=== PATIENT | female | born 2000 | race Caucasian/White ===

== ENCOUNTER 2020-07-29 15:41 | Emergency (ER) | payer BC, SELFPAY ==
[2020-07-29 16:25] VITALS: BP 152/99; PULSE 132; RESP 20; TEMP 36.7; O2SAT 99; BMI 40.3
[2020-07-29 17:07] VITALS: BP 152/99; PULSE 102; RESP 20; TEMP 36.7; O2SAT 99
--- NOTE | 2020-07-29 17:13 | HMH.EDUTC ---
[facility] [place] Clinical Impression: Exposure to COVID-19 virus Disposition: Home, Self-Care Condition on Discharge: Good Instructions: DI for COVID-19 (Suspected or Confirmed ), Preventing the Spread of Coronavirus Discharge Instructions Additional Instructions: self isolate until test results are known to be neg Referrals: PCP,No [Primary Care Provider] - Time of Disposition: 17:16 Medical Decision Making - Roosevelt Inquiry Pt receiving controlled substance: No Vital Signs: 07/29/20 16:25 07/29/20 17:07 Temperature 98.1 F 98.1 F Temperature Source Oral Pulse Rate 102 H Pulse Rate [Left Brachial] 132 H Respiratory Rate 20 20 Blood Pressure 152/99 H Blood Pressure [Left Arm] 152/99 H Blood Pressure Mean [Left Arm] 116 Blood Pressure Source [Left Arm] Automatic Cuff Blood Pressure Position [Left Arm] Sitting 02 Sat by Pulse Oximetry 99 Oxygen Delivery Method Room Air [facility] [place] - General Chief complaint: Urgent [facility] Stated complaint: Covid Test Time Seen by Provider: 07/29/20 17:13 Mode of Arrival: Ambulatory Source of Information: Patient Limitations: No Limitations Description of Symptoms (Recalled from Triage Doc. by RN): COVID TEST D/T INDIRECT EXPOSURE HEENT Symptoms (Recalled from RN notes): No Resp Symptoms (Recalled from RN notes): No Skin Symptoms (Recalled from RN notes): No MS Symptoms (Recalled from RN notes): No Functional Status (Recalled from RN notes): WNL - History of Present Illness Provider Complaint: 19 yr old female presents for covid test. pt states she was exposed but no symptoms. - Related Data Allergies Allergy/AdvReac Type Severity Reaction Status Date / Time No Known Allergies Allergy Verified 07/29/20 17:00 - Worker's Comp Is this a Worker's Comp case?: No [facility] [place] History - Hepatitis A Screen Drug use history?: No High risk sexual behaviors?: No History of sexually transmitted infection?: No Currently employed?: No Childcare worker?: No Do you have indoor plumbing?: Yes Do you have electricity?: Yes Attestation statement:: This patient has been screened for Hepatitis A risk factors. I have reviewed the patient's past medical history: No - Social History Alcohol Intake: never Occupational Status: other ROS Obtained: Yes All systems reviewed & no additional complaints - Constitutional Constitutional: Reports system reviewed and no additional complaints, except as docu, Denies chills, Denies fever(s) - Eyes Eyes: Reports system reviewed and no additional complaints, except as docu, Denies blurry vision - ENT Ears, Nose, Mouth, and Throat: Reports system reviewed and no additional complaints, except as docu, Denies bleeding gums, Denies sore throat - Cardiovascular Cardiovascular: Reports system reviewed and no additional complaints, except as docu, Denies dyspnea - Respiratory Respiratory: Yes system reviewed and no additional complaints, except as docu, No change in phlegm color - Gastrointestinal Gastrointestingal: Reports: system reviewed and no additional complaints, except as docu. Denies: nausea, vomiting - Genitourinary Female Genitourinary: Reports system reviewed and no additional complaints, except as docu - Musculoskeletal Musculoskeletal: Reports system reviewed and no additional complaints, except as docu, Denies joint pain - Integumentary/Breasts Skin/Breast: Reports system reviewed and no additional complaints, except as docu, Denies rash - Neurologic Neurologic: Reports system reviewed and no additional complaints, except as docu, Denies dizziness - Endocrine Endocrine: Reports system reviewed and no additional complaints, except as docu, Denies fatigue - Hematologic/Lymphatic Henatologic/Lymphatic: Reports system reviewed and no additional complaints, except as docu, Denies lymphadenopathy - Allergic/Immunologic Allergic/Immunologic: Reports system reviewed and no additional complaints, excep
== END 2020-07-29 17:22 | disposition home or self-care (01) ==
PROVIDERS: Emergency Provider Nurse Practitioner Family
DX: Z20.822 Contact with and (suspected) exposure to COVID-19 (principal)
CPT/HCPCS: 99202; G0463; U0003

== ENCOUNTER 2022-12-06 08:10 | Emergency (ER) | payer BC, SELFPAY ==
[2022-12-06 08:19] VITALS: BMI 32.3
--- NOTE | 2022-12-06 08:20 | XR_ITS ---
PROCEDURE INFORMATION: Exam: XR Right Foot Exam date and time: 12/06/2022 8:20 AM Age: 22 years old Clinical indication: Toes; Right; Patient HX: PT stubbed 5th phalanx of RT foor last night, pain w occasional numbness since. ; Additional info: Pinky toe pain TECHNIQUE: Imaging protocol: Radiologic exam of the right foot. Views: 1 or 2 views. COMPARISON: No relevant prior studies available. FINDINGS: Bones/joints: Displaced transverse fracture proximal phalanx 5th digit. No articular extension. No dislocation. Soft tissues: Mild lateral soft tissue swelling. IMPRESSION: Displaced transverse fracture proximal phalanx 5th digit. No articular extension.
[2022-12-06 08:30] VITALS: BP 147/103; PULSE 114; RESP 23; TEMP 37.6; O2SAT 98; BMI 44.5
--- NOTE | 2022-12-06 08:47 | EXP.UTC ---
Discharge Plan Disposition Patient Disposition: Home, Self-Care Condition: Good Referrals Follow up/Referrals: Nate Diggs DO [Staff Physician] - See instructions (call office for appointment) Provider,Osman, [Primary Care Provider] - See instructions Activity Restrictions/Add. Instructions Additional Instructions/Restrictions: *weight bearing as tolerated *RICE, Rest the extremity, Ice 15-20 minutes 3-4 times daily, Compress- wear the wilian wrap as discussed as much as possible to help reduce swelling and pain, Elevate the extremity when at rest *Post op shoe is for support and help control swelling, use it except in the shower. Be sure that is not to tight but not to loose either *Elevate when resting? *Ibuprofen 600-800mg every 6-8 hours as needed for pain an inflammation. If need something more can take Tylenol in between doses of Ibuprofen to help Immediately follow up with your family doctor for new or worsening of symptoms, or no noticeable improvement over the next 3-5 days Call orthopedic office for appointment Clinical Impressions Clinical Impression: Phalanx fracture, foot Instructions Patient Instructions: DI for Toe Fracture, Toe Fracture, How To Perform RICE (Rest, Ice, Compress, Elevate) Discharge ED Provider: Lesly Quesada [facility] [place] Stated complaint: AO@home 12/06 RT pinky toe pain Mode of Arrival: Ambulatory Source of Information: Patient Limitations: No Limitations Time Seen by Provider: 12/06/22 08:47 Description of Symptoms (Recalled from Triage Doc. by RN): PATIENT C/O PAIN TO RIGHT PINKY TOE AFTER SHE STUBBED IT LAST NIGHT HEENT Symptoms (Recalled from RN notes): No Resp Symptoms (Recalled from RN notes): No Skin Symptoms (Recalled from RN notes): No MS Symptoms (Recalled from RN notes): Yes Functional Status (Recalled from RN notes): WNL History of Present Illness Provider Complaint: Patient state that she was playing around at home last night when she stubbed her right little toe on door frame States that she has been having pain, swelling and bruising every since Related Data Allergies Allergy/AdvReac Type Severity Reaction Status Date / Time No Known Allergies Allergy Verified 07/29/20 17:00 Worker's Comp Is this a Worker's Comp case?: No [facility] Disclaimer: The information contained in this section may have been updated after the patient was seen, as this information can be updated by other users. Social History Smoking Status: Unknown if ever smoked alcohol intake: never current occupational status: other Travel in the last 8 weeks: None ROS Obtained: Yes All systems reviewed & no additional complaints except as documented and Yes Systems reviewed as appropriate & no additional complaints except as documented ENT Ears, Nose, Mouth, and Throat: Reports system reviewed and no additional complaints, except as documented and Reports as per HPI Cardiovascular Cardiovascular: Reports system reviewed and no additional complaints, except as documented and Reports as per HPI Respiratory Respiratory: Reports system reviewed and no additional complaints, except as documented and Reports as per HPI Gastrointestinal Gastrointestingal: Reports system reviewed and no additional complaints, except as documented and as per HPI Musculoskeletal Musculoskeletal: Reports system reviewed and no additional complaints, except as documented and Reports as per HPI Comments: Pain, swelling and right little toe Physical Exam General General appearance: alert and in no apparent distress Respiratory Respiratory exam: Present normal lung sounds bilaterally; Absent respiratory distress or wheezes Cardiovascular Cardiovascular exam: Present regular rate, normal rhythm and normal heart sounds Expanded Lower Extremity Exam Right: Top foot image: 1. swelling and bruising noted Neurovascular/Tendon exam: Present normal capillary refill; Absent pulse deficit
[2022-12-06 08:48] VITALS: BP 147/103; PULSE 114; RESP 23; TEMP 37.6; O2SAT 98
== END 2022-12-06 09:20 | disposition home or self-care (01) ==
PROVIDERS: Emergency Provider Nurse Practitioner
DX: S92.511A Displaced fracture of proximal phalanx of right lesser toe(s), initial encounter for closed fracture (principal); W22.8XXA Striking against or struck by other objects, initial encounter
CPT/HCPCS: 73620; 99212; 99214; G0463

== ENCOUNTER → 2023-01-08 14:31 | Outpatient (CLI) | payer BC, SELFPAY ==
--- NOTE | 2023-01-08 14:35 | XR_ITS ---
FINAL REPORT CLINICAL HISTORY: Rt foot pain COMPARISON: None FINDINGS: RIGHT FOOT: Three views of the right foot were obtained. There is no acute fracture or dislocation. The joint spaces are intact. There is no soft tissue abnormality. IMPRESSION: No acute bony abnormality. Reviewed, Interpreted and Dictated by Rodolfo Reynolds III, MD Transcribed by Nancy Awan Authenticated and [facility] [place]
== END ==
PROVIDERS: Visit Provider Orthopaedic Surgery
DX: M79.671 Pain in right foot (principal); S92.911A Unspecified fracture of right toe(s), initial encounter for closed fracture
CPT/HCPCS: 73630

== ENCOUNTER 2023-03-31 23:35 | Emergency (ER) | payer BC, SELFPAY ==
[2023-03-31 23:38] VITALS: BP 142/95; PULSE 137; RESP 22; TEMP 36.9; O2SAT 97; BMI 42.7
--- NOTE | 2023-04-01 00:07 | HMH.EDGENADL ---
Discharge Plan Disposition Patient Disposition: Home, Self-Care Condition: Good Prescriptions Prescriptions: No Action No Known Home Medications Referrals Follow up/Referrals: Provider,Referral, MD [Primary Care Provider] - See instructions Activity Restrictions/Add. Instructions Additional Instructions/Restrictions: Please follow-up with your primary care provider. Please return to the emergency department if you develop any new or worsening symptoms or become concerned for your health. Clinical Impressions Clinical Impression: Acute anxiety Discharge ED Provider: Jony Clark Adult HPI General Chief complaint: Anxiety Stated complaint: Dizziness,arms & legs tingling Time Seen by Provider: 03/31/23 23:46 Mode of Arrival: Ambulatory Source of Information: Patient Limitations: No Limitations Description of Symptoms (Recalled from ER Triage Doc. by RN): pt reports tingling in arms and legs that comes and goes, denies injury History of Present Illness HPI narrative: 22-year-old female, previously healthy, presents with complaint that her arm felt partially asleep while laying on the couch. She reports that her other arm and bilateral legs and started tingling. She became nervous and concerned that something was seriously wrong and so presents to the ER. She reports that she is no longer having the symptoms. She denies any chest pain abdominal pain shortness of breath fever chills recent illness or other concerns. No prior past medical history. Nothing like this has happened before. Related Data Home Medications Medication Instructions Recorded Confirmed No Known Home Medications 12/11/22 01/08/23 Allergies Allergy/AdvReac Type Severity Reaction Status Date / Time No Known Allergies Allergy Verified 01/08/23 15:25 [facility] Disclaimer: The information contained in this section may have been updated after the patient was seen, as this information can be updated by other users. Social History Smoking Status: Never smoker alcohol intake: never current occupational status: other Travel in the last 8 weeks: None ROS Obtained: Yes All systems reviewed & no additional complaints except as documented Physical Exam General General appearance: alert and anxious (figity) Head Head exam: atraumatic and normocephalic Eye Eye exam: Present normal appearance, PERRL and EOMI ENT ENT exam: Present normal oropharynx and normal external ear exam Neck Neck exam: Present normal inspection and full ROM Chest Chest inspection: Present normal inspection and symmetric chest wall rise; Absent tenderness Respiratory Respiratory exam: Present normal lung sounds bilaterally; Absent respiratory distress Cardiovascular Cardiovascular exam: Present regular rate and normal rhythm Abdominal Exam Abdominal exam: Present soft; Absent distention, tenderness or guarding Extremities Exam Extremities exam: Present normal inspection; Absent edema or joint swelling Back Exam Back exam: Present normal inspection; Absent tenderness Neurological Exam Neurological exam: Present alert and oriented X3; Absent motor sensory deficit Psychiatric Psychiatric exam: Present normal affect and normal mood Skin Skin exam: Present warm, dry and normal color Lymphatic Lymphatic Findings: no adenopathy Medical Decision Making Medical Records Medical records reviewed: Yes I reviewed the patient's medical records. Roosevelt Inquiry Pt receiving controlled substance: No Roosevelt was queried for this patient: No Vital Signs: 03/31/23 23:38 04/01/23 00:34 Temperature 98.5 F 98.1 F Temperature Source Oral Oral Pulse Rate 104 H Pulse Rate [Right] 137 H Respiratory Rate 22 16 Blood Pressure 144/96 H Blood Pressure [Right Arm] 142/95 H Blood Pressure Mean [Right Arm] 110 Blood Pressure Source Automatic Cuff Blood Pressure Source [Right Arm] Autom
--- NOTE | 2023-04-01 00:11 | ECG_ITS ---
APPROVED REPORT Exam: Resting ECG HR:107 bpm ECG Measurements Heart Rate 107 AXES OK 175 P 50 QRSd 94 QRS 57 QT 326 T 0 QTc 389 Conclusion SINUS TACHYCARDIA NONSPECIFIC T-WAVE ABNORMALITY ABNORMAL RHYTHM ECG UNCONFIRMED REPORT Electronically signed by : Jarvis Luke MD 04/02/2023 20:02:12
[2023-04-01 00:34] VITALS: BP 144/96; PULSE 104; RESP 16; TEMP 36.7; O2SAT 100
== END 2023-04-01 00:34 | disposition home or self-care (01) ==
PROVIDERS: Emergency Provider Emergency Medicine
DX: R42 Dizziness and giddiness (principal); F41.9 Anxiety disorder, unspecified
CPT/HCPCS: 93005; 99284

== ENCOUNTER 2023-05-25 08:32 | Emergency (ER) | payer BC, SELFPAY ==
[2023-05-25] VITALS (8 sets, daily range): BP systolic 126–158; BP diastolic 69–103; PULSE 90–113; RESP 16–18; TEMP 36.6–37.2; O2SAT 97–99; BMI 42.7
--- NOTE | 2023-05-25 09:11 | EXP.UTC ---
Discharge Plan Disposition Patient Disposition: Home, Self-Care Condition: Good Prescriptions Prescriptions: New ondansetron 4 mg tablet,disintegrating 4 mg PO Q8H PRN (Reason: nausea and vomiting) Qty: 12 0RF No Action hydroxyzine HCl 25 mg tablet 25 mg PO DAILY Referrals Follow up/Referrals: Provider,Referral, MD [Primary Care Provider] - See instructions Activity Restrictions/Add. Instructions Additional Instructions/Restrictions: You were evaluated in the emergency department today. Please take Tylenol and ibuprofen at home as needed for pain. We sent in a prescription for Zofran for you to take as needed for nausea and vomiting. Follow-up with your primary care provider over the next 3 days for reassessment. Return to the emergency department for new or worsening symptoms, such as worsening pain, persistent fevers, or inability to tolerate oral intake. Clinical Impressions Clinical Impression: Abdominal pain, Mesenteric adenitis, Left ovarian cyst Instructions Patient Instructions: DI for Acute Abdominal Pain Discharge ED Provider: Tiffanie Obrien [facility] General Chief complaint: Abdominal Pain Stated complaint: lower right abd pain Time Seen by Provider: 05/25/23 09:11 History of Present Illness Provider Complaint: She has had right sided abdominal pain for the past 1 day. Related Data Home Medications Medication Instructions Recorded Confirmed hydroxyzine HCl 25 mg tablet 25 mg PO DAILY Anxiety 05/25/23 05/25/23 Previous Rx's Medication Instructions Recorded ondansetron 4 mg disintegrating 4 mg PO Q8H PRN nausea and 05/25/23 tablet vomiting #12 tabs Allergies Allergy/AdvReac Type Severity Reaction Status Date / Time No Known Allergies Allergy Verified 05/25/23 09:19 [facility] Disclaimer: The information contained in this section may have been updated after the patient was seen, as this information can be updated by other users. Social History Smoking Status: Never smoker alcohol intake: never current occupational status: other Travel in the last 8 weeks: None ROS Obtained: Yes All systems reviewed & no additional complaints except as documented Constitutional Constitutional: Denies chills, Denies fever(s) and Reports poor appetite ENT Ears, Nose, Mouth, and Throat: Denies dizziness and Denies sore throat Cardiovascular Cardiovascular: Denies dyspnea Respiratory Respiratory: Denies chest congestion, Denies cough and Denies dyspnea Genitourinary Female Genitourinary: Denies difficulty voiding, Denies dysuria, Denies hematuria, Denies urinary frequency, Denies urinary incontinence, Denies urinary hesitancy and Denies urinary urgency Musculoskeletal Musculoskeletal: Denies arthralgias Integumentary/Breasts Skin/Breast: Denies rash Neurologic Neurologic: Denies dizziness Physical Exam General General appearance: alert and in no apparent distress Head Head exam: atraumatic and normocephalic Eye Eye exam: Present normal appearance, PERRL and EOMI ENT ENT exam: Present normal exam, normal oropharynx, mucous membranes moist, TM's normal bilaterally and normal external ear exam Neck Neck exam: Present normal inspection, full ROM and trachea midline; Absent tenderness, meningismus or lymphadenopathy Chest Chest inspection: Present normal inspection and symmetric chest wall rise; Absent tenderness, rash or abscess Respiratory Respiratory exam: Present normal lung sounds bilaterally; Absent respiratory distress, wheezes or stridor Cardiovascular Cardiovascular exam: Present regular rate and normal rhythm; Absent irregular rhythm, systolic murmur, diastolic murmur or JVD Abdominal Exam Abdominal exam: Present soft and normal bowel sounds; Absent distention, tenderness, guarding, rebound, rigidity, psoas sign, obturator sign, heel tap sign, Gaines's sign, Rovsing's sign or tenderness at McBurney's Point Ext
[2023-05-25 09:26] LABS: Apearance,Urine Clear (Clear); Color,Urine Yellow (Yellow); PH,Urine 5.5 (5.0-8.5); Specific Gravity, Urine 1.025 (1.005-1.030)
[2023-05-25 09:27] LABS: Bilirubin,Urine Negative (Negative); Blood, Urine Negative (Negative); Glucose,Urine (UA) Negative (Negative); Ketones,Urine TRACE (Negative); Protein,Urine Negative (Negative); UTC Leukocyte Esterase,Urine Negative (Negative); UTC Nitrate,Urine Negative (Negative); UTC Pregnancy Test, Urine Negative (Negative); Urobilinogen,Urine 0.2 EU/dl (0.2)
--- NOTE | 2023-05-25 09:48 | CT_ITS ---
FINAL REPORT TECHNIQUE: After the administration of intravenous contrast, axial images were obtained through the abdomen and pelvis by computed tomography. This study was performed with technique to keep radiation doses as low as reasonably achievable, (ALARA). Individualized dose reduction techniques using automated exposure control or adjustment of the MA and/or KV according to the patient's size were employed. CLINICAL HISTORY: RLQ pain FINDINGS: Abdomen: The lung bases are clear. The liver is normal in size and attenuation. The spleen is unremarkable. The adrenals are normal. The pancreas is unremarkable. The kidneys enhance appropriately. The aorta is normal in caliber. There is no free fluid or adenopathy. Pelvis: The appendix is normal. There is a left ovarian cyst measuring 2.1 cm. The urinary bladder is unremarkable. There is a small amount of pelvic free fluid which may physiologic or reactive. There are enlarged right lower quadrant mesenteric lymph nodes which may be reactive or reflect mesenteric adenitis. IMPRESSION: 2.1 cm left ovarian cyst. Enlarged right lower quadrant mesenteric lymph nodes which could be reactive or related to mesenteric adenitis. Small amount of pelvic free fluid which may be physiologic or reactive. Reviewed, Interpreted and Dictated by Rodolfo Reynolds III, MD Transcribed by Lolita Deutsch Authenticated and [facility]
--- NOTE | 2023-05-25 09:51 | US_ITS ---
PROCEDURE INFORMATION: Exam: US Pelvis, Transvaginal Exam date and time: 05/25/2023 10:06 AM Age: 22 years old Clinical indication: Pelvic pain; Additional info: Rlq pain TECHNIQUE: Imaging protocol: Real-time transvaginal pelvic ultrasound with image documentation. Transvaginal imaging was used for better evaluation of the endometrium, adnexa, and/or cervix. COMPARISON: No relevant prior studies available. FINDINGS: Uterus: The endometrial echo complex measures 7 mm. The uterus measures 5.2 x 4.8 x 3.3 cm. Myometrium is overall normal in echotexture. Cervix: Nabothian cysts are noted at the level of the cervix. Right ovary/adnexa: Subcentimeter follicles are noted in the right ovary. Left ovary/adnexa: There is an 18mm follicle in the left ovary. Intraperitoneal space: No free fluid. IMPRESSION: Normal pelvic ultrasound.
--- NOTE | 2023-05-25 09:52 | HMH.EDGENADL ---
Discharge Plan Disposition Patient Disposition: Home, Self-Care Condition: Good Prescriptions Prescriptions: New ondansetron 4 mg tablet,disintegrating 4 mg PO Q8H PRN (Reason: nausea and vomiting) Qty: 12 0RF No Action hydroxyzine HCl 25 mg tablet 25 mg PO DAILY Referrals Follow up/Referrals: Provider,Referral, [Primary Care Provider] - See instructions Activity Restrictions/Add. Instructions Additional Instructions/Restrictions: You were evaluated in the emergency department today. Please take Tylenol and ibuprofen at home as needed for pain. We sent in a prescription for Zofran for you to take as needed for nausea and vomiting. Follow-up with your primary care provider over the next 3 days for reassessment. Return to the emergency department for new or worsening symptoms, such as worsening pain, persistent fevers, or inability to tolerate oral intake. Clinical Impressions Clinical Impression: Abdominal pain, Mesenteric adenitis, Left ovarian cyst Instructions Patient Instructions: DI for Acute Abdominal Pain Discharge ED Provider: Tiffanie Obrien General Adult HPI General Chief complaint: Abdominal Pain Stated complaint: lower right abd pain Time Seen by Provider: 05/25/23 09:11 Mode of Arrival: Ambulatory Source of Information: Patient Limitations: No Limitations Description of Symptoms (Recalled from ER Triage Doc. by RN): Pt states that she has on and off lower right abd discomfort since Thursday. States she was seen at the ER in [place] on Thursday and they told her it was her anxiety. History of Present Illness HPI narrative: This patient is a 22-year-old female with a history of anxiety presenting to the emergency department for evaluation with concern for right lower quadrant abdominal pain. Patient reports that this has been intermittent for the last several days. She notes that right now it is not as severe, and it was discomfort. She states she went to the ER in [place] on Thursday, and she was told that it was related to her anxiety. She denies any fevers or chills, but she does note that she has had nausea. She has not been able to eat or drink anything today. She denies any dysuria, abnormal vaginal discharge, vaginal bleeding, or other concerns. I received report from [facility] provider who sent her over here to the emergency department. He noted that he was concerned that she may need work-up for possible appendicitis given right lower quadrant abdominal pain. He noted urinalysis and test were negative and [facility]. Related Data Home Medications Medication Instructions Recorded Confirmed hydroxyzine HCl 25 mg tablet 25 mg PO DAILY Anxiety 05/25/23 05/25/23 Previous Rx's Medication Instructions Recorded ondansetron 4 mg disintegrating 4 mg PO Q8H PRN nausea and 05/25/23 tablet vomiting #12 tabs Allergies Allergy/AdvReac Type Severity Reaction Status Date / Time No Known Allergies Allergy Verified 05/25/23 09:19 [facility] Disclaimer: The information contained in this section may have been updated after the patient was seen, as this information can be updated by other users. Social History Smoking Status: Never smoker alcohol intake: never current occupational status: other Travel in the last 8 weeks: None ROS Obtained: Yes All systems reviewed & no additional complaints except as documented Physical Exam General General appearance: alert and in no apparent distress Head Head exam: atraumatic and normocephalic Eye Eye exam: Present normal appearance, PERRL and EOMI ENT ENT exam: Present normal exam, normal oropharynx, mucous membranes moist and normal external ear exam Neck Neck exam: Present normal inspection, full ROM and trachea midline; Absent tenderness Chest Chest inspection: Present normal inspection and symmetric chest wall rise; Absent tenderness Respiratory Respiratory ex
[2023-05-25 10:17] LABS: Basophils % 0.5 % (0.1-2.0); Eosinophils # 0.2 K/mm3 (0.0-0.4); Eosinophils % 1.6 % (0.1-12.0); Hematocrit 43.1 % (37.0-47.0); Hemoglobin 14.2 g/dL (12.2-16.2); Lymphocytes # 1.6 K/mm3 (0.7-4.5); Lymphocytes % 18.4 % (10-50); Mean Corpuscular HGB Conc 32.9 g/dL (31.8-35.4); Mean Corpuscular Hemoglobin 29.5 pg (27.0-31.2); Mean Corpuscular Volume 89.7 fl (81-99); Monocytes # 0.5 K/mm3 (0.1-1.0); Neutrophils # 6.6 K/mm3 (1.8-7.8); Neutrophils % 74.4 % (37.0-80.0); Platelet Count 220 K/mm3 (142-424); Red Cell Distribution Width 13.6 % (11.5-17.5); White Blood Count 8.9 K/mm3 (4.8-10.8)
[2023-05-25 10:20] LABS: Chloride 108 mmol/L (98-107); Sodium 141 mmol/L (136-145)
--- NOTE | 2023-05-25 10:20 | PC.NURSE ---
Pt gone to [facility]
[2023-05-25 10:21] LABS: Potassium 4.1 mmoL/L (3.5-5.1)
[2023-05-25 10:23] LABS: Alanine Aminotransferase 18 U/L (12-78); Albumin Level 4.7 g/dl (3.5-5.0); Albumin/Globulin Ratio 1.3 (1.1-1.8); Alkaline Phosphatase 81 U/L (38-126); Anion Gap 13.1 mEq/L (5-15); Aspartate Amino Transferase 21 U/L (14-36); Bilirubin,Total 0.3 mg/dl (0.2-1.3); Blood Urea Nitrogen 12 mg/dl (7-17); Carbon Dioxide 24 mmol/L (22.0-30.0); Creatinine Clearance Estimated 116 mL/min (50-200); Estimated Glomerular Filt Rate 103 ml/min (>60); GFR (African American) 124 ML/MIN (>60); Globulin 3.6 g/dL (1.3-3.2); Total Protein,Serum 8.3 g/dl (6.3-8.2)
[2023-05-25 10:24] LABS: Calcium 9.3 mg/dl (8.4-10.2); Glucose 108 mg/dl (74-100)
--- NOTE | 2023-05-25 11:45 | PC.NURSE ---
Rounded on pt. No needs voiced at this time. Call light within reach.
== END 2023-05-25 13:24 | disposition home or self-care (01) ==
LOC: UTC 08:35 → ER 09:41
PROVIDERS: Nurse Practitioner Family; Emergency Provider Emergency Medicine
DX: R10.0 Acute abdomen (principal); I88.0 Nonspecific mesenteric lymphadenitis; N83.202 Unspecified ovarian cyst, left side; F41.1 Generalized anxiety disorder
CPT/HCPCS: 74177; 76830; 80053; 81003; 81025; 85025; 87086; 96361; 96374; 96375; 99285; J0131; J2405; Q9967

== ENCOUNTER 2023-05-26 01:07 | Emergency (ER) | payer BC, SELFPAY ==
[2023-05-26 01:17] VITALS: BP 144/105; PULSE 89; RESP 20; TEMP 36.8; O2SAT 100; BMI 42.7
--- NOTE | 2023-05-26 01:46 | HMH.EDGENADL ---
Discharge Plan Disposition Patient Disposition: Home, Self-Care Prescriptions Prescriptions: No Action hydroxyzine HCl 25 mg tablet 25 mg PO DAILY ondansetron 4 mg tablet,disintegrating 4 mg PO Q8H PRN (Reason: nausea and vomiting) Qty: 12 0RF Referrals Follow up/Referrals: Jovanny Brown MD [Primary Care Provider] - See instructions Activity Restrictions/Add. Instructions Additional Instructions/Restrictions: Call your family doctor to establish care for this visit to the emergency department and schedule follow-up within 48 hours to ensure improvement. If you have any worsening of your condition or any other concerning signs or symptoms, return to the emergency department or your primary care doctor for further evaluation. Follow-up with family doctor. You can also take 1-2 hydroxyzine every 6 hours as needed for anxiety. This can make you sleepy, so do not engage in activities that can be harmful to yourself or others while taking. Clinical Impressions Clinical Impression: Anxiety attack Discharge ED Provider: Wallace Taveras General Adult HPI General Chief complaint: Anxiety Stated complaint: Anxiety Time Seen by Provider: 05/26/23 01:09 Mode of Arrival: Ambulatory Limitations: No Limitations Description of Symptoms (Recalled from ER Triage Doc. by RN): Pt ambulatory to ED. Pt c/o anxiety starting approx 1 hour ago when her lips, tongue, and jaw started twitching . Pt reports hx jose l anxiety related to any health issues she has. Pt denies any medical diagnoses. Pt states she was seen in the ED in [place] 1 week ago, and was prescribed zoloft. Pt has been taking zoloft since, and reports worsening anxiety since then. Appointment schedule with Dr. Brown this week. LMP 2 weeks ago. History of Present Illness HPI narrative: Patient is 22 years old M presenting with symptoms of anxiety. Patient states that this is similar to her previous episodes of anxiety, however this is a little different because she does not usually have facial numbness and tingling. Started about an hour prior to arrival. Patient states that she usually has tingling in her hands and feet, however this time tingling in her lips, tongue, twitching in my jaw, made her want to be evaluated in case it was something serious. Patient denies chest pain, nausea or vomiting, or any other concerns at this time. Related Data Home Medications Medication Instructions Recorded Confirmed hydroxyzine HCl 25 mg tablet 25 mg PO DAILY Anxiety 05/25/23 05/25/23 Previous Rx's Medication Instructions Recorded ondansetron 4 mg disintegrating 4 mg PO Q8H PRN nausea and 05/25/23 tablet vomiting #12 tabs Allergies Allergy/AdvReac Type Severity Reaction Status Date / Time No Known Allergies Allergy Verified 05/25/23 09:19 [facility] Disclaimer: The information contained in this section may have been updated after the patient was seen, as this information can be updated by other users. Social History Smoking Status: Never smoker alcohol intake: never current occupational status: other Travel in the last 8 weeks: None ROS Obtained: Yes All systems reviewed & no additional complaints except as documented Physical Exam General General appearance: alert, in no apparent distress, anxious and other (Intermittently tremulous) Head Head exam: atraumatic and normocephalic Eye Eye exam: Present normal appearance, PERRL and EOMI ENT ENT exam: Present mucous membranes moist Neck Neck exam: Present normal inspection, full ROM and trachea midline Respiratory Respiratory exam: Present normal lung sounds bilaterally; Absent respiratory distress, wheezes, stridor, accessory muscle use or prolonged expiratory phase Cardiovascular Cardiovascular exam: Present regular rate and normal rhythm Abdominal Exam Abdominal exam: Present soft; Absent distention, tenderness, guarding, rebou
[2023-05-26 02:23] VITALS: BP 134/75; PULSE 81; RESP 16; TEMP 36.8; O2SAT 100
== END 2023-05-26 02:25 | disposition home or self-care (01) ==
PROVIDERS: Emergency Provider Emergency Medicine; PCP Family Medicine
DX: F41.0 Panic disorder [episodic paroxysmal anxiety] (principal); R25.1 Tremor, unspecified; R20.8 Other disturbances of skin sensation
CPT/HCPCS: 99283

== ENCOUNTER → 2023-06-12 12:48 | Outpatient (CLI) | payer BC, SELFPAY ==
--- NOTE | 2023-06-12 12:51 | CA_ITS ---
APPROVED REPORT EXAM: Comprehensive 2D, Doppler, and color-flow Echocardiogram Civil Service Clerk: Linda Turner RT(R) Ht: 5 ft 6 in Wt: 272lbs BSA: 2.28 BP: 167/102 mmHg Indications: SOA, palpitations, HTN, obesity 2D Dimensions IVSd 0.80 cm F: 0.6-1.0 LVEF (Visual) 53.20 % PWd 0.74 cm F: 0.6 - 1.0 LA Volume 41.10 mL LVDd 5.08 cm F: 3.9 - 5.3 LA Volume Index 18.03 mL/m2 (M/F) 16-34 LVDs 3.68 cm F: 2.2 - 3.5 LVOT 1.97 cm (M/F) 1.5-2.5 M-Mode Dimensions RVDd 2.44 cm (0.9-2.6) LA Diam 2.92 cm (1.9-4.0) LVDd 4.97 cm (3.5-5.7) Ao Diam 3.20 cm (2.0-3.7) LVDs 3.94 cm (3.5-5.7) IVSd 0.70 cm (0.6-1.1) PWd 0.70 cm (0.6-1.1) EF (Teich) 42.10% FS 20.70% EDV (Teich) 116.60 mL ESV (Teich) 67.50 mL LV Diastology E Decel Time 223.00 (160-240 msec) E/A Ratio 1.2 MED E' 9.50 (< 7 cm/sec) E'/MED E' Ratio 8.95 (>14) LAT E' 14.30 (<10 cm/sec) E/LAT E' Ratio 5.94 (>14) Mitral Valve MV E Max Manjit. 85.00 (40-130 cm/s) MV A Velocity 72.00 (40-130 cm/s) E/A Ratio 1.18 MV Decel. Time 223.00 (160-240 ms) MV PHT 65.00 ms Tricuspid Valve TR P. Velocity 232.00 cm/s RAP Estimate 10.00 mmHg RVSP 31.50 mmHg Left Ventricle The left ventricle is normal size. The left ventricular systolic function is normal. The left ventricular ejection fraction is within the normal range. There is normal left ventricular wall thickness. There is normal LV segmental wall motion. The left ventricular diastolic function is normal. LVEF is 55%. Right Ventricle The right ventricle is normal size. The right ventricular systolic function is normal. Atria The left atrium size is normal. The right atrium size is normal. Aortic Valve The aortic valve opens well. There is no aortic valvular stenosis. Trace aortic regurgitation is present. Mitral Valve The mitral valve is normal in structure. No evidence of mitral valve stenosis. Trace mitral regurgitation. Tricuspid Valve The tricuspid valve leaflets are thin and pliable. Mild tricuspid regurgitation. RVSP is 20-25 mmHg. Pulmonic Valve The pulmonary valve is normal in structure. Trace pulmonic regurgitation. Great Vessels The aortic root is normal in size. The ascending aorta is normal in size. The IVC is not well visualized. Pericardium There is no pericardial effusion. Other Information Study Quality: Adequate Conclusion Normal biventricular systolic function. Mild TR. Electronically signed by : Marilynn Huston MD 06/14/2023 22:52:12
== END ==
PROVIDERS: PCP Family Medicine; Visit Provider Family Medicine
DX: F41.9 Anxiety disorder, unspecified (principal)
CPT/HCPCS: 93306

== ENCOUNTER 2024-10-17 11:44 | Outpatient (CLI) | payer BC, SELFPAY ==
--- NOTE | 2024-10-17 11:46 | XR_ITS ---
FINAL REPORT CLINICAL HISTORY: WHEEZING cough, VILLAFUERTE COMPARISON: None FINDINGS: PA and lateral views of the chest are obtained. There is no prior exam for comparison. The cardiac and mediastinal silhouettes are within normal limits. The lungs are clear. There is no pleural effusion, pneumothorax, or acute osseous abnormality. IMPRESSION: No radiographic evidence of acute cardiac or pulmonary disease. Reviewed, Interpreted and Dictated by Aleyda Escobedo MD Transcribed by Kalyn Arango Authenticated and [facility]
== END 2024-10-17 23:59 | disposition home or self-care (01) ==
LOC: RAD 11:44
PROVIDERS: PCP Family Medicine; Visit Provider Family Medicine
DX: R06.2 Wheezing (principal)
CPT/HCPCS: 71046